=== PATIENT | female | born 1945 | race Hispanic/Latino ===

== ENCOUNTER → 2017-11-11 | Outpatient (CLI) | payer MEDICARE ==
--- NOTE | 2017-11-11 16:50 | Mammography Report ---
BILATERAL DIGITAL SCREENING MAMMOGRAM with CAD: 11/11/17 10:18:00 CLINICAL: Routine screening. COMPARISON:10/06/14 FINDINGS: There are scattered areas of fibroglandular density. No mass, architectural distortion or suspicious calcifications. IMPRESSION: No mammographic evidence of malignancy. BI-RADS CATEGORY: 2 -- Benign RECOMMENDATION: Routine mammographic screening in one year. COMMENT: Patient follow-up letters are generated by our [employer] application.
--- NOTE | 2017-11-12 10:46 | Mammography Report ---
BONE DEXA:11/11/17 10:18:00 CLINICAL: Postmenopausal. COMPARISON: 04/17/15 and 04/09/12 TECHNIQUE: Two site bone DEXA performed on an Hologic scanner. FINDINGS: The average BMD of the lumbar spine L1-L4 is 1.138g/cm squared with a T-score of +0.8 and a Z-score of 3.1. This compares to 1.145g/cm squared on the last exam and represents a -0.7% change from the previous study and a 0% change from baseline. The average BMD of the left hip is 0.803g/cm squared with a T-score of -1.1 and a Z-score of +0.5. This compares to 0.821g/cm squared on the last exam and represents a -2.1% change from the previous study and a -9.5% change from baseline. The left femoral neck BMD is 0.672g/cm squared with a T score of -1.6 and a Z score of +0.4.. IMPRESSION: 1. WHO classification: Normal with average fracture risk based on spine measurements. 2. WHO classification: Osteopenia with increased fracture risk based on left hip measurements. 3. A modest decline in both spine and left hip BMD compared to the last exam. RECOMMENDATION: Clinical correlation and routine screening. DEFINITIONS: BMD = Bone Mineral Density T-score = BMD related to mean peak bone mass of young adult (mean expressed in Standard Deviation) Z-score = Age matched BMD expressed in SD World Health Organization (WHO) Diagnostic Criteria Normal T-score > -1 SD Osteopenia T-score between -1 and -2.4 SD Osteoporosis T-score -2.5 SD or below NOTE: BMD is not the only risk factor for fracture; also consider factors such as the patient's age, risk of falling, previous osteoporotic fracture, family history of osteoporotic fractures, current smoker, and low body weight. Z-scores are not calculated if >80 years of age.
== END | disposition home or self-care (01) ==
LOC: SPVWC 10:18
PROVIDERS: ATTEND Family Medicine
DX: Z12.31 Encounter for screening mammogram for malignant neoplasm of breast (principal); Z13.820 Encounter for screening for osteoporosis; M85.88 Other specified disorders of bone density and structure, other site; F17.210 Nicotine dependence, cigarettes, uncomplicated; Z78.0 Asymptomatic menopausal state
CPT/HCPCS: 77067; 77080

== ENCOUNTER 2019-02-02 10:23 | Outpatient (CLI) | payer MEDICARE ==
--- NOTE | 2019-02-02 11:10 | Mammography Report ---
DIGITAL RIGHT DIAGNOSTIC MAMMOGRAM WITH CAD, WITHOUT TOMOSYNTHESIS 02/02/2019 INDICATION: ABNORMAL MAMMOGRAM. Recall to evaluate a right focal asymmetry. TECHNIQUE: Digital right mammographic imaging was performed. Magnification views were obtained. This examination was interpreted with the benefit of Computer-aided Detection analysis. COMPARISON: 12/31/2018 Breast Density: The breasts are heterogeneously dense, which may obscure small masses. FINDINGS: Lateral, rolled CC and spot magnification CC views were performed and are negative. Satisfa ctory effacement of asymmetry. IMPRESSION: No mammographic evidence of malignancy. Follow up recommendation: Routine BI-RADS Category 1: Negative. A "normal" or negative report should not discourage follow up or biopsy of a clinically significant f inding. A written summary of these findings will be mailed to the patient. The patient will be entered into a mammography reporting system which will generate a reminder letter for the patient's next appointmen t at the appropriate interval. According to the [employer], yearly mammograms are recommended starting at age 40 and continuing as long as a woman is in good health. Breast MRI is recommended for women with an brayan roximately 20-25% or greater lifetime risk of breast cancer, including women with a strong family his tory of breast or ovarian cancer and women who have been treated for Hodgkin's disease. Signer Name: Jermaine Pena MD Signed: 02/02/2019 11:06 AM Workstation Name: [id number]
== END 2019-02-02 10:24 | disposition home or self-care (01) ==
LOC: SPVWC 10:23
PROVIDERS: ATTEND Family Medicine
DX: R92.8 Other abnormal and inconclusive findings on diagnostic imaging of breast (principal); Z78.0 Asymptomatic menopausal state; Z13.820 Encounter for screening for osteoporosis

== ENCOUNTER 2020-04-18 11:11 | Outpatient (CLI) | payer MEDICARE, BC ==
--- NOTE | 2020-04-19 13:34 | Mammography Report ---
DIGITAL SCREENING MAMMOGRAM WITH CAD, 04/19/2020 CLINICAL INFORMATION / INDICATION: Routine screening mammography. SCREENING MAMMOGRAM TECHNIQUE: Digital bilateral 2D mammography was obtained in the craniocaudal and mediolateral obliqu e projections. This examination was interpreted with the benefit of Computer-Aided Detection analysis . COMPARISON: 03/10/2012 through 12/31/2018. FINDINGS: Breast Density: There are scattered areas of fibroglandular density. No dominant mass, suspicious calcifications, or architectural distortion in either breast. There are a few benign calcifications bilaterally. A pacing generator overlies the left axilla. No ne w abnormality is seen. IMPRESSION: No mammographic evidence of malignancy. Follow up recommendation: Routine yearly BI-RADS Category 2: Benign. A "normal" or negative report should not discourage follow up or biopsy of a clinically significant f inding. A written summary of these findings will be mailed to the patient. The patient will be entered into a mammography reporting system which will generate a reminder letter for the patient's next appointmen t at the appropriate interval. The [employer] recommends yearly mammograms starting at age 40 and continuing as l krunal as a woman is in good health. Breast MRI is recommended for women with an approximate 20-25% or greater lifetime risk of breast cancer, including women with a strong family history of breast or ova redd cancer or who have been treated for Hodgkin's disease. Signer Name: Jesús Diaz MD Signed: 04/19/2020 1:29 PM Workstation Name: [id number]
== END 2020-04-18 11:12 | disposition home or self-care (01) ==
LOC: SPVWC 11:11
PROVIDERS: ATTEND Family Medicine
DX: Z12.31 Encounter for screening mammogram for malignant neoplasm of breast (principal)
CPT/HCPCS: 77067

== ENCOUNTER 2021-02-12 13:35 | Outpatient (CLI) | payer MEDICARE, BC ==
--- NOTE | 2021-02-12 17:01 | Mammography Report ---
DEXA BONE DENSITY SCAN INDICATION: OSTEOPENIA/POSTMENOPAUSAL STATE, postmenopausal female COMPARISON: 12/31/2018 LUMBAR SPINE (L1-L4): Bone mineral density (BMD) is 1.176 g/cm2. T-score is 1.2 (standard deviations of Young Adult mean). Z-score is 3.7 (standard deviations of Age Matched mean). LEFT FEMORAL NECK: Bone mineral density (BMD) is 0.634 g/cm2. T-score is -1.9 (standard deviations of Young Adult mean). Z-score is 0.2 (standard deviations of Age Matched mean). DENSITOMETRY TRENDS: Lumbar change from prior study: Increase 4.2%. Femoral neck mean change from previous study: Increased 2.4%. IMPRESSION: 1. WHO Classification: Osteopenia. Fracture Risk: Increased. Signer Name: Shen Leos MD Signed: 02/12/2021 4:56 PM Workstation Name: [id number]
== END 2021-02-12 13:36 | disposition home or self-care (01) ==
LOC: SPVWC 13:35
PROVIDERS: ATTEND Family Medicine
DX: M85.80 Other specified disorders of bone density and structure, unspecified site (principal); Z78.0 Asymptomatic menopausal state
CPT/HCPCS: 77080